=== PATIENT | male | born 1930 | race American Indian/Alaskan Native ===

== ENCOUNTER 2018-02-18 11:16 | Emergency (ER) | payer OTHER ==
[~2018-02-18] VITALS: Ht 177.8 cm; Wt 79.4 kg
== END 2018-02-18 14:36 | disposition home or self-care (01) ==
LOC: ER 11:16
DX: S61.422A Laceration with foreign body of left hand, initial encounter (principal); S01.121A Laceration with foreign body of right eyelid and periocular area, initial encounter; W18.39XA Other fall on same level, initial encounter; Y93.89 Activity, other specified; Y92.098 Other place in other non-institutional residence as the place of occurrence of the external cause; Y99.8 Other external cause status

== ENCOUNTER 2018-05-17 23:59 | Inpatient (IN) | payer OTHER ==
[~2018-05-17] VITALS: Ht 177.8 cm; Wt 79.4 kg
[2018-05-19] MEDS ORDERED: CARVEDILOL6.25 MG (10:08)
[2018-05-19] MEDS ORDERED: TAMS0.4C (10:08)
[2018-05-19] MEDS ORDERED: ESCITALOPRAM OX20 MG (10:10)
[2018-05-19] MEDS ORDERED: SPIRIVA RESPIMAT4 GM (10:11)
[2018-05-19] MEDS ORDERED: CLONAZEPAM1 MG (10:11)
[2018-05-19] MEDS ORDERED: BREO ELLIPTA 21 EACH (10:11)
[2018-05-19] MEDS ORDERED: ASPIR 8181 MG (10:12)
== END 2018-05-23 17:04 | disposition home or self-care (01) | DRG 291 ==
LOC: ER 23:59 → ICU-2 05-18 17:26 → MEDI 05-19 17:13
PROC: 3E0F7GC Introduction of Other Therapeutic Substance into Respiratory Tract, Via Natural or Artificial Opening (ICD-10-PCS; principal; 2018-05-18)
PROC: 4A033R1 Measurement of Arterial Saturation, Peripheral, Percutaneous Approach (ICD-10-PCS; 2018-05-18)
PROC: B246ZZZ Ultrasonography of Right and Left Heart (ICD-10-PCS; 2018-05-18)
PROC: BW28ZZZ Computerized Tomography (CT Scan) of Head (ICD-10-PCS; 2018-05-18)
PROC: 2W3CX1Z Immobilization of Right Lower Arm using Splint (ICD-10-PCS; 2018-05-18)
PROC: 4A12X4Z Monitoring of Cardiac Electrical Activity, External Approach (ICD-10-PCS; 2018-05-19)
DX: I11.0 Hypertensive heart disease with heart failure (principal); G93.41 Metabolic encephalopathy; S42.321A Displaced transverse fracture of shaft of humerus, right arm, initial encounter for closed fracture; F05 Delirium due to known physiological condition; C34.82 Malignant neoplasm of overlapping sites of left bronchus and lung; C34.81 Malignant neoplasm of overlapping sites of right bronchus and lung; C79.31 Secondary malignant neoplasm of brain; N39.0 Urinary tract infection, site not specified; J44.1 Chronic obstructive pulmonary disease with (acute) exacerbation; I50.33 Acute on chronic diastolic (congestive) heart failure; Z79.01 Long term (current) use of anticoagulants; Z91.81 History of falling; Y93.89 Activity, other specified; Y92.098 Other place in other non-institutional residence as the place of occurrence of the external cause; Y99.8 Other external cause status; F10.20 Alcohol dependence, uncomplicated; B95.2 Enterococcus as the cause of diseases classified elsewhere; R09.02 Hypoxemia; R54 Age-related physical debility; Z87.891 Personal history of nicotine dependence; Z53.29 Procedure and treatment not carried out because of patient's decision for other reasons; W06.XXXA Fall from bed, initial encounter